=== PATIENT | male | born 1970 | race Caucasian/White ===

== ENCOUNTER 2021-03-19 07:41 | Emergency (ER) | payer OTHER, SELFPAY ==
[2021-03-19 07:41] VITALS: BP 140/69; PULSE 71; RESP 16; TEMP 35.9; O2SAT 97; BMI 27.9
--- NOTE | 2021-03-19 08:07 | ED.VIS.BACK ---
HPI History of Present Illness Chief Complaint: Back Narrative Narrative: Patient has had progressive pain over the past few weeks but got worse in the past few days, he is complaining of left-sided paraspinal pain buttock pain with radiation into the leg. He has no fever or chills. This all started after he stepped into a hole and twisted his back. He has no bowel or bladder compromise, no urinary retention symptoms no saddle anesthesia. He has no abdominal pain. PFSH PFSH Home Medications methylprednisolone [Medrol (Jh)] 4 mg PO DAILY #21 tab 03/19/21 [Rx Last Taken Unknown] oxycodone-acetaminophen [Percocet] 1 tab PO TID PRN 3 Days #10 tab 03/19/21 [Rx Last Taken Unknown] tizanidine 4 mg PO QHS PRN #14 tab 03/19/21 [Rx Last Taken Unknown] Allergy/AdvReac Type Severity Reaction Status Date / Time No Known Allergies Allergy Verified 10/14/19 16:07 Social History (Updated 10/14/19 @ 17:21 by Kaleb VANEGAS, GUILHERME) Smoking Status: Never smoker ROS ROS ED ROS Narrative Past medical history: Reviewed Medications: Reviewed Social history: Noncontributory Review of systems: All systems negative except as indicated General: No fever Eyes: No visual changes ENT: No upper airway congestion, normal voice Neck: No neck pain Cardiovascular: No chest pain Respiratory: No shortness of breath or cough Gastrointestinal: No abdominal pain, nausea vomiting or diarrhea Genitourinary: No dysuria Musculoskeletal: Buttock and back pain as in HPI Skin: No rash Neurological: No weakness or paresthesias, radiculopathy as in HPI Psych: No recent behavioral changes Hematologic: No easy bleeding or easy bruising EXAM Physical Exam Narrative Exam Narrative: Vitals reviewed General: Patient appears in some discomfort HEENT: Moist mucous membranes Neck: Nontender Cardiovascular normal heart rate Respiratory: No respiratory difficulty speaking in full sentences Abdomen: Soft and nontender, there is no suprapubic mass or pain Back: There is some tenderness over paraspinal region on the left, some tenderness in the upper buttock region. Pelvis is stable no SI joint pain. Extremities: Moves all extremities without joint pain or signs of trauma Neurological: There is normal plantar flexion and dorsiflexion of both feet and great toes. Patellar and Achilles reflexes are normal. Normal strength and sensation. Positive left-sided straight leg test. Skin: No rash Psychiatric: Slightly anxious. Const Vital Signs: 03/19/21 07:41 Temperature 96.6 F L Temperature Source Temporal Pulse Rate 71 Respiratory Rate 16 Blood Pressure 140/69 H Blood Pressure Mean 92 Pulse Ox 97 Oxygen Delivery Method Room Air MDM MDM MDM Narrative Medical decision making narrative: Patient has sciatica without any red flags I will treat him medically and he can follow-up with his PCP. Discharge Plan Triage Chief Complaint: Back ED Provider: Colt Zee Dx/Rx/DC Orders Clinical Impression: Sciatica Instructions: ED Sciatica Prescriptions: New methylprednisolone [Medrol (Jh)] 4 mg tablets,dose pack 4 mg PO DAILY Qty: 21 RF: 0 oxycodone-acetaminophen [Percocet] 5-325 mg tablet 1 tab PO TID PRN (Reason: pain) 3 Days Qty: 10 RF: 0 tizanidine 4 mg tablet 4 mg PO QHS PRN (Reason: muscle spasticity) Qty: 14 RF: 0 Primary Care Provider: Arely Villalobos Referrals: Arely Villalobos MD [Primary Care Provider] - 3-5 Days Disposition Disposition: Home, Self Care
[2021-03-19] MEDS: oxyCODONE 5 MG Tablet PO (08:40)
== END 2021-03-19 08:44 | disposition home or self-care (01) ==
LOC: ED 08:20
PROVIDERS: Emergency Provider Emergency Medicine; PCP Family Medicine
DX: M54.30 Sciatica, unspecified side (principal)
CPT/HCPCS: 99283

== ENCOUNTER 2021-05-16 11:00 | Outpatient (RCR) | payer OTHER, SELFPAY ==
--- NOTE | 2021-03-28 11:39 | HP.PTEVAL_ITS ---
Patient's Visit Information DHEERAJ SENIOR is a 50 year old M referred to Physical Therapy by Dr. Arely Villalobos MD with a diagnosis of R sciatica. Date of Evaluation: 03/28/21 Physical Therapist: Isai Casanova, PT, ATC - Visit Plan Frequency: 2-3x /Week Duration: 2-4 Weeks Plan: Postural education, REIL, core stab ex's, LE stretching, and HEP - Subjective Pt reports he has had LBP for a month. Then a couple weeks ago, he began to expe rience pain that radiated down to his R ankle. Pt reports his R LE radiculopathy has decreased a little, but he still complains of pain located in the R glute region. Pt reports he has been seeing a chiropractor over the past few weeks which has helped, but notes it is not better yet. Pt denies pain of this nature in the past. Pt reports sleep difficulty secondary to pain. Pt reports he has been taking a steroid pack which really hasnt helped. Pt notes no Dx tests at this time. 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 Pt reports bending over to pick an item up and carrying it will increase his pain. Pt notes prolonged sitting also increases his pain. Pt notes walking doesnt bother him until he walks a long distance, then his hamstrings and peterson splints act up. 6/10 pain at rest, 9/10 at worst. - Pain R LBP Pain Intensity (Out of 10): 6 Pain Intensity Range: 9 - Objective Neuro: B LE sensation is WNL to light touch. B patellar reflex= 1/3. MMT: B LE's are grossly 5/5 throughout. L?S ROM: Pt has a minimal limitation with ext. all other ranges are WNL. Repeated movements: RFIS 10x1 peripheralized sx's into R glute and upper HS. CHERELLE 10x2 increased LBP. REIL 10x2 NE. Special tests: Pos 90/90, pos piriformis sign - Balance/Special Test Scores Lower Extremity Functional Score: 47 - Goals Goal 1:: Decrease LBP x 50% to aid with sleep Goal Time Frame: 2-4 Weeks Goal 2:: Increase L/S ext ROM to WNL to aid with decreasing LBP Goal Time Frame: 2-4 Weeks Goal 3:: Decrease the frequency and intensity of LBP x 50% to aid with work requirements Goal Time Frame: 2-4 Weeks Goal 4:: I with HEP Goal Time Frame: 2-4 Weeks - Rehabilitation Potential Physical Therapy Diagnosis: Pt has LBP, R LE radiculopathy, and limited L/S ext ROM secondary to a L/S disc derrangement. Rehabilitation Potential: Good - Anticipated Interventions Patient/Client Instruction: Educate patient on: Condition, Plan of Care For the Purpose of:: To improve self management Therapeutic Exercise to Include: Strength training, Endurance training, Body mechanics, Postural training, Flexibilty training, Active ROM, Dynamic Lumbar Stabilization For the Purpose of:: To decrease pain, To increase ROM, To improve muscle performance and motor function Cryotherapy (ice pack, ice massage): Yes Thermo therapy (hot pack): Yes For the Purpose of:: To decrease pain Thank you for the opportunity to evaluate your patient. For Medicare and Medicare HMO plans, please review the plan of care and approve it. It will need to be FAXED BACK to us at [phone] for Medicare purposes. For Medicare only, by signing this I certify the plan of care. Please let me know if there are questions or concerns regarding this plan of care. Physician Signature: Date:
--- NOTE | 2021-04-18 11:33 | HP.PTREVAL_ITS ---
Dr. Arely Villalobos MD, It has been my pleasure to treat DHEERAJ SENIOR over the last 5 visits for R sciatica. Please see the progress note below for an update on the physical therapy plan of care! Subjective: I am ready for discharge Objective/Function: No LBP this date. No LE radiculopathy at this time. Pt has full L/S ROM. Pt is I with HEP Plan Plan: Recheck or discharge in one month Balance/Gait/Functional tests - Balance/Special Test Scores Lower Extremity Functional Score: 73 Goals Goal 1:: Decrease LBP x 50% to aid with sleep Goal Time Frame: 2-4 Weeks Goal Progress: Goal Met Goal 2:: Increase L/S ext ROM to WNL to aid with decreasing LBP Goal Time Frame: 2-4 Weeks Goal Progress: Goal Met Goal 3:: Decrease the frequency and intensity of LBP x 50% to aid with work requirements Goal Time Frame: 2-4 Weeks Goal Progress: Goal Met Goal 4:: I with HEP Goal Time Frame: 2-4 Weeks Goal Progress: Goal Met Anticipated Interventions Patient/Client Instruction: Educate patient on: Condition, Plan of Care For the Purpose of:: To improve self management Therapeutic Exercise to Include: Strength training, Endurance training, Body mechanics, Postural training, Flexibilty training, Active ROM, Dynamic Lumbar S tabilization For the Purpose of:: To decrease pain, To increase ROM, To improve muscle performance and motor function Cryotherapy (ice pack, ice massage): Yes Thermo therapy (hot pack): Yes For the Purpose of:: To decrease pain Please do not hesitate to contact me at [phone] by phone or Fax: if you have questions or concerns regarding this new plan of care! Sincerely, Isai Casanova, PT, ATC
--- NOTE | 2021-05-16 12:01 | HP.PTDCSUM ---
It has been my pleasure to treat DHEERAJ SENIOR referred by Dr. Arely Villalobos MD, with the diagnosis of R sciatica for a total of 6 visit(s). Discharge Date: Please see the following information for a summary of their discharge status. Subjective: Pt reports he continues to notice improvements R LBP Pain Intensity (Out of 10): 2 % Improvement: 80 Objective/Function: 2/10 LBP this date. No LE radiculopathy at this time. Pt has full L/S ROM. Pt is I with HEP. Rx goals achieved Goal 1:: Decrease LBP x 50% to aid with sleep Goal Progress: Goal Met Goal 2:: Increase L/S ext ROM to WNL to aid with decreasing LBP Goal Progress: Goal Met Goal 3:: Decrease the frequency and intensity of LBP x 50% to aid with work requirements Goal Progress: Goal Met Goal 4:: I with HEP Goal Progress: Goal Met Plan: Discharge to HEP If there are questions or concerns regarding this patient's physical therapy, please feel free to call me at [phone]. Thank you for the referral of this patient. Sincerely, Isai Casanova, PT, ATC Balance/Gait/Functional tests - Balance/Special Test Scores Oswestry Low Back Score: 0 Lower Extremity Functional Score: 73
== END 2021-05-16 12:23 | disposition home or self-care (01) ==
LOC: PT 11:00
PROVIDERS: PCP Family Medicine; Referring Provider Family Medicine; Visit Provider Family Medicine
DX: M54.31 Sciatica, right side (principal)
CPT/HCPCS: 97110; 97161; 97164

== ENCOUNTER 2022-03-04 08:21 | Emergency (ER) | payer OTHER, SELFPAY ==
[2022-03-04 08:23] VITALS: BP 125/95; PULSE 75; RESP 14; TEMP 36.7; O2SAT 97; BMI 28.8
[2022-03-04 08:32] VITALS: BP 121/78; PULSE 53; RESP 16; TEMP 36; O2SAT 98
[2022-03-04 08:39] VITALS: BMI 28.5
--- NOTE | 2022-03-04 08:49 | CT_ITS ---
STUDY: CT BRAIN WITHOUT CONTRAST REASON FOR EXAM: Male, 51 years old. One day history of dizziness. RADIATION DOSAGE (If Supplied By Facility): CTDIvol = ( 44.99 ) mGy, DLP = ( 812.98 ) mGycm TECHNIQUE: Transaxial CT imaging of the brain was performed without administration of intravenous contrast material. Individualized dose optimization techniques were used for this CT. COMPARISON: No relevant priors. FINDINGS: Normal soft tissue structures. Normal calvarium. Normal size ventricles and extra-axial spaces for the patient''s age. Normal white matter tracts of the cerebral hemispheres. Normal basal ganglia and thalami. Normal brainstem. Normal cerebellum. There is no intracranial hemorrhage. There are no findings of an acute ischemic infarction. Minimal degree of mucosal thickening of the ethmoid sinuses. CT/Brain/Head without Contrast IMPRESSION: Normal unenhanced CT scan of the brain. Minimal thickening of the ethmoid sinuses bilaterally. Electronically Signed: Abhi Vásquez MD at 9:30 EDT ,
--- NOTE | 2022-03-04 08:53 | EX.ED.DYSGE1 ---
HPI History of Present Illness Chief Complaint: Dizziness Informant: patient and spouse/S.O. Narrative Narrative: 51-year-old male presents to the emergency department with reported dizziness. Patient states that yesterday morning while drinking coffee he felt that perhaps his coffee was too strong as he started noticed that he felt dizzy. He states as the day progressed he had sensation of the room spinning when his eyes are open. He notes it is also worse if he attempts to get up or turn his head. He denies any headache or tinnitus. No recent URI or sinus issues. No fevers. No arm or leg symptoms. He denies any vision loss. No recent head trauma. His tried some meclizine and Dramamine last night with no improvement. He has never had this before. He denies any confusion. [facility] Medical History Back pain Indigestion Home Medications omeprazole 40 mg capsule,delayed release 40 mg PO DAILY PRN Heartburn 03/04/22 [History Last Taken Unknown] Allergy/AdvReac Type Severity Reaction Status Date / Time No Known Allergies Allergy Verified 03/04/22 08:40 Social History (Updated 03/04/22 @ 08:[address] Luis Fernando Martínez DO) Smoking Status: Never smoker substance use type: does not use ROS ROS ED Constitutional Constitutional ED: Denies chills, fever(s) or weight loss Eyes Eyes: Denies change in vision or diplopia ENT ENT ED: Reports other; Denies ear pain, rhinorrhea or sore throat Cardiovascular Cardiovascular: Denies chest pain, orthopnea, palpitations or racing heartbeat Respiratory/Chest Respiratory/Chest: Denies cough, dyspnea or orthopnea Gastrointestinal Gastrointestinal: Denies abdominal pain, diarrhea, nausea or vomiting Genitourinary Genitourinary ED: Denies dysuria, hematuria or urinary frequency Musculoskeletal Musculoskeletal: Denies arthralgias or myalgias Integumentary Denies abscess or rash Neurologic Neurologic: Reports other Details: Dizziness ; Denies headache(s), paresthesias or weakness Psychiatric Psychiatric: Denies anxiety, depression, suicidal ideation or suicidal thoughts Endocrine Endocrinology: Denies polydipsia, polyphagia or polyuria Allergic/Immunologic Allergic/Immunologic ED: Denies mouth swelling, tongue swelling or urticaria EXAM Physical Exam Const Vital Signs: 03/04/22 08:23 03/04/22 08:32 03/04/22 08:35 Temperature 98.1 F 96.8 F L Temperature Source Temporal Temporal Pulse Rate 75 53 L Respiratory Rate 14 16 Respiratory Effort Normal Non-Labored Respiratory Pattern Normal Blood Pressure 125/95 H 121/78 H Blood Pressure Mean 105 92 Pulse Ox 97 98 Oxygen Delivery Method Room Air Room Air 03/04/22 10:29 Temperature Temperature Source Pulse Rate 50 L Respiratory Rate 12 Respiratory Effort Respiratory Pattern Blood Pressure 122/86 H Blood Pressure Mean 98 Pulse Ox 99 Oxygen Delivery Method Room Air Positive well nourished and well developed General Appearance ED: well developed HEENT Reports normocephalic, head/scalp atraumatic and moist mucous membranes HEENT Narrative: Positive Pascale-Hallpike Eyes PERRL and EOMs intact bilaterally Eyes Narrative: There is nystagmus with the fast component to the right with movement of his head and ocular movements. Neck no lymphadenopathy, supple and no JVD Resp normal respiratory effort and clear to auscultation bilaterally Cardio regular rate, regular rhythm and no murmurs GI normal to inspection, nondistended, normoactive bowel sounds and non-tender Palpation: soft Back/Spine no CVA tenderness and normal ROM Extremity normal to inspection General Extremety ED: Negative for edema General Extremity: Negative for edema Neuro oriented x3 and CN's II-XII intact bilaterally Sensorium / Orientation: alert Motor Exam: strength 5/5 throughout Psych mental status grossly normal Mood & Affect: Negative for depressed or tearful Skin no rashes or lesions noted and no wounds MDM MDM MDM Narrative Medical decision making narrative: Patient received IV fluids Zofran and p.o. Valium. CT of the brain was negative. Repeat examination the patient feels better at rest however when he got up to walk to the bathroom he states that things still seem spinning. We talked about admission into the hospital and the patient would like to try treating this at home. I think this is reasonable as I believe this is most likely peripheral vertigo. I will write for some diazepam and Zofran at home. We talked about following up the possible need for ENT or physical therapy involvement. Lab Data Attestation: I reviewed the patient's lab results. Labs: Laboratory Results - last 24 hr 03/04/22 03/04/22 09:05 09:05 WBC 6.0 RBC 5.33 Hgb 16.6 H Hct 46.6 MCV 87.4 MCH 31.1 MCHC 35.6 RDW Std Deviation 39.1 RDW Coeff of Melany 12.2 Plt Count 203 MPV 8.7 Immature Gran % (Auto) 0.200 Neut % (Auto) 66.6 Lymph % (Auto) 25.5 [place]illa % (Auto) 6.5 Eos % (Auto) 0.5 Baso % (Auto) 0.7 Absolute Neuts (auto) 4.0 Absolute Lymphs (auto) 1.54 Nucleated RBC % 0 Sodium 138 Potassium 4.0 Chloride 102 Carbon Dioxide 32.0 Anion Gap 4 L BUN 14 Creatinine 0.89 Estim Creat Clear Calc 100.25 Est GFR (MDRD) Af Amer 115 Est GFR (MDRD) Non-Af 95 BUN/Creatinine Ratio 15.7 Glucose 106 Calcium 9.4 Total Bilirubin 0.40 AST 19 ALT 41 Alkaline Phosphatase 73 Total Protein 7.3 Albumin 3.7 Globulin 3.6 Albumin/Globulin Ratio 1.0 Radiography Diagnostic Testing: Clinical Impression(s) from Imaging Studies Brain CT 03/04/22 08:49 IMPRESSION: Normal unenhanced CT scan of the brain. Minimal thickening of the ethmoid sinuses bilaterally. Electronically Signed: Abhi Vásquze MD at 9:30 EDT , Discharge Plan Triage Chief Complaint: Dizziness ED Provider: Luis Fernando Martínez Dx/Rx/DC Orders Prescriptions: No Action omeprazole 40 mg Capsule,Delayed Release(Dr/Ec) 40 mg PO DAILY PRN (Reason: Heartburn) Primary Care Provider: Arely Villalobos Referrals: Arely Villalobos MD [Primary Care Provider] - NIHSS NIHSS 1a. Level of Consciousness: Alert; keenly responsive 1b. LOC Questions: Answers BOTH questions correctly. 1c. LOC Commands: Performs both tasks correctly. 2. Best Gaze: Normal 3. Visual: No visual loss 4. Facial Palsy: Normal symmetrical movements 5a. Left Arm: No drift; arm holds 90 (or 45) degrees for full 10 seconds 5b. Right Arm: No drift; arm holds 90 (or 45) degrees for full 10 seconds 6a. Left Leg: No drift; leg holds 30-degree position for full 5 seconds 6b. Right Leg: No drift; leg holds 30-degree position for full 5 seconds 7. Limb Ataxia: Absent 8. Sensory: Normal; no sensory loss 9. Best Language: No aphasia; normal 10. Dysarthria: Normal 11. Extinction and Inattention: No abnormality Total: 0
[2022-03-04] MEDS: 0.9% Normal Saline 1,000 ML 1000 ML IV (09:06)
[2022-03-04] MEDS: Ondansetron 4 MG/2 ML Vial IV (09:07)
[2022-03-04 09:13] LABS: Absolute Lymphocyte Count 1.54 X10^3/uL (0.83-4.51); Basophil# 0.04 X10^3/uL; Basophil% 0.7 % (0-1); Eosinophil# 0.03 X10^3/uL; Eosinophils% 0.5 % (0-5); Hematocrit 46.6 % (40-54); Hemoglobin 16.6 g/dL (13.0-16.5); Lymphocyte # 1.54 X10^3/ul (0.83-4.51); Lymphocyte % 25.5 % (19-41); Mean Corp Hgb Conc 35.6 g/dL (32-36); Mean Corpuscular Hgb 31.1 pg (27.0-32.0); Mean Corpuscular Volume 87.4 fL (80-94); Mean Platelet Vol. 8.7 fl (6.2-12.0); Monocyte# 0.39 X10^3/uL; Monocyte% 6.5 % (0-10); NRBC Flagged by Analyzer 0 % (0-5); Neutrophil # 4.02 X10^3/uL (2.7-7.7); Neutrophil % 66.6 % (47-70); Platelet Count 203 K/mm3 (150-450); RBC Distribution Width CV 12.2 % (11.6-14.6); RBC Distribution Width SD 39.1 fl (35.1-43.9); Red Blood Count 5.33 M/mm3 (4.6-6.2)
[2022-03-04] MEDS: diazePAM 5 MG Tablet PO (09:13)
[2022-03-04 09:31] LABS: AST(SGOT) 19 U/L (15-37); Alanine Aminotransfer ALT/SGPT 41 U/L (16-61); Albumin, Serum 3.7 g/dL (3.2-5.0); Alkaline Phosphatase 73 U/L (45-117); Anion Gap 4 (5-15); BUN 14 mg/dL (7-18); BUN/Creat Ratio 15.7 RATIO (10-20); Calcium,Total 9.4 mg/dL (8.5-10.1); Chloride 102 mmol/L (98-107); Creatinine, Serum 0.89 mg/dL (0.70-1.30); EST Glomerular Filtration Rate 95 mL/min (>60); Est Glom Filt Rate - Afr Amer 115 mL/min (>60); Estimated Creatinine Clearance 100.25 ml/min; Globulin 3.6 g/dL (2.2-4.2); Glucose 106 mg/dL (74-106); Protein, Total 7.3 g/dL (6.4-8.2); Sodium Level 138 mmol/L (136-145)
[2022-03-04 10:29] VITALS: BP 122/86; PULSE 50; RESP 12; O2SAT 99
[2022-03-04 12:41] VITALS: BP 107/81; PULSE 56; RESP 12; TEMP 36.1; O2SAT 99
[2022-03-04 12:46] VITALS: BP 107/81; PULSE 56; RESP 12; TEMP 36.1; O2SAT 99
== END 2022-03-04 12:51 | disposition home or self-care (01) ==
PROVIDERS: Emergency Provider Emergency Medicine; PCP Family Medicine; Visit Provider Emergency Medicine
DX: R42 Dizziness and giddiness (principal); Z79.899 Other long term (current) drug therapy
CPT/HCPCS: 70450; 80053; 85025; 96361; 96374; 99285; J7030; J2405

== ENCOUNTER 2022-03-10 06:51 | Outpatient (RCR) | payer OTHER, SELFPAY ==
--- NOTE | 2022-03-10 07:41 | HP.PTEVAL_ITS ---
Patient's Visit Information DHEERAJ SENIOR is a 51 year old M referred to Physical Therapy by Dr. Arely Villalobos MD with a diagnosis of vertigo. Date of Evaluation: 03/10/22 Physical Therapist: Zia Luciano DPT, OCS, CSCS - Visit Plan Frequency: 1x/Week Duration: 2-4 Weeks Plan: weekly as needed for 3-4 weeks for adaptation and habituation ex progression as helpful - Subjective I have vertigo since last Thursday. [place] fine upon waking. Started getting dizzy with morning coffee. Ate some food and left for work it just got worse. Went home and laid down and it got worse where he could not walk. Thursday woke up and felt worse and went to ER. Spent day in ER. Had Catscan and checked him out for stroke and it was OK. Gave him antinausea meds and dizzy meds in ER. Went to PCP and sent for therapy. Not on meds anymore. Feels foggy last couple days and gets dizzy if turns his head quickly and transiently. A little spinny if turns head too quick. had breast CA surgery Thursday . [place] cloudy much of the weekend but functional and can walk. No actual spinning since . 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 Basic ADLs and doing things around the house. No falls, overall 90% better, still has some lagging with movements and feelings. - Objective Walks easily and I today, trasnfers I. Steps reciprocal without rail. cervical AROM WFL and without pain or limitations. UE AROM WFL. - B hallpike carolyn tests and - roll test. Oculomotor: no nystagmus with gaze or head shake. - skew eye deviation. - ocular tilt test. - head thrust. normal pursuit and saccades today but eyes feel tired. VOR gives goofy feeling in head for a few moments H>V. MSQ positions, 180 turns and up form knee both cause momentary feeling in head. 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 For Medicare and Medicare HMO plans, please review the plan of care and approve it. It will need to be FAXED BACK to us at [phone] for Medicare purposes. For Medicare only, by signing this I certify the plan of care. Please let me know if there are questions or concerns regarding this plan of care. Physician Signature: Date:
--- NOTE | 2022-04-21 12:30 | HP.PT.NRP ---
DHEERAJ SENIOR was seen in my office for initial evaluation on 03/10/22. The following Plan of Care was established for this patient: Initial Frequency: 1x/Week Initial Duration: 2-4 Weeks Patient/Client Instruction: Educate patient on: Condition, Plan of Care For the Purpose of:: To increase tolerance to activity/condition/position For the Purpose of:: To increase tolerance to activity/condition/position This patient was last seen in our office 03/10/22. Pertinent comments regarding their Physical therapy will appear below: Pt seen for initial evaluation and POC established. He was doing pretty good with his dizzyness at the time. He did not attend any further visits. At this point, it has been over 4 weeks and I will discontinue him from my care due to nonattendance. At this point I will be discontinuing this patient from physical therapy. I would be happy to see this patient again in the future if found appropriate by the physician. Thank you! Zia Luciano, DPT, OCS, CSCS Balance/Gait/Functional tests - Balance/Special Test Scores Functional Gait Assessment Score: 30 % Disability: 0 Dizziness Score: 16
== END 2022-03-10 19:00 | disposition home or self-care (01) ==
LOC: PT 06:51
PROVIDERS: PCP Family Medicine; Referring Provider Family Medicine; Visit Provider Family Medicine
DX: R42 Dizziness and giddiness (principal)
CPT/HCPCS: 97161

== ENCOUNTER 2024-02-04 08:05 | Emergency (ER) | payer OTHER, SELFPAY ==
[2024-02-04 08:05] VITALS: BP 150/96; PULSE 77; RESP 14; TEMP 36.6; O2SAT 95; BMI 29.8
--- NOTE | 2024-02-04 08:16 | CT_ITS ---
STUDY: CT BRAIN WITHOUT CONTRAST REASON FOR EXAM: Male, 53 years old. Laceration along the posterior aspect of the skull following a fall. RADIATION DOSAGE (If Supplied By Facility): CTDIvol = ( 44.99 ) mGy, DLP = ( 796.11 ) mGycm TECHNIQUE: Transaxial CT imaging of the brain was performed without administration of intravenous contrast material. Individualized dose optimization techniques were used for this CT. COMPARISON: Comparison is made with prior study dated March 04, 2022. FINDINGS: Minimal scalloped thickening along the posterior aspect of the right parieto-occipital bone. A metallic density is seen overlying the skull at that site most likely representing a suture. Normal calvarium. Normal size ventricles and extra-axial spaces for the patient''s age. Normal white matter tracts of the cerebral hemispheres. Normal basal ganglia and thalami. Normal brainstem. Normal cerebellum. There is no intracranial hemorrhage. There are no findings of an acute ischemic infarction. Normal visualized paranasal sinuses. CT/Brain/Head without Contrast IMPRESSION: Normal unenhanced CT scan of the brain. Minimal scalloped thickening overlying the posterior right parietal occipital bone. Findings suggestive of suture material overlying the injury. Electronically Signed: Abhi Vásquez MD at 8:58 EDT ,
--- NOTE | 2024-02-04 08:16 | EDS_ITS ---
HPI History of Present Illness Chief Complaint: Head Injury Informant: patient and spouse/S.O. Narrative Narrative: 53-year-old male presenting to the emergency room with a chief complaint of head injury. Patient was in the bed of his truck when he tripped and fell over the wire on the gait striking his head on the pavement below. No loss of consciousness but he notes that he was dizzy. PFSH PFSH Medical History Back pain Indigestion Home Medications ?Medication ?Instructions ?Recorded ?Last Taken ?Type omeprazole 40 mg capsule,delayed 40 mg PO DAILY PRN Heartburn 03/04/22 Unknown History release benzonatate 200 mg capsule 200 mg PO TID PRN cough #14 caps 06/29/23 Unknown Rx dexamethasone 6 mg tablet 6 mg PO DAILY #5 tabs 06/29/23 Unknown Rx Allergy/AdvReac Type Severity Reaction Status Date / Time No Known Allergies Allergy Verified 02/04/24 08:05 Social History Smoking Status: Never smoker substance use type: does not use EXAM Physical Exam Const Vital Signs: 02/04/24 08:05 Temperature 98 F Temperature Source Temporal Pulse Rate 77 Respiratory Rate 14 Blood Pressure 150/96 H Blood Pressure Mean 114 Pulse Ox 95 Oxygen Delivery Method Room Air Discharge Plan Triage Chief Complaint: Head Injury ED Provider: Luis Fernando Martínez Dx/Rx/DC Orders Prescriptions: No Action dexamethasone 6 mg tablet 6 mg PO DAILY Qty: 5 0RF benzonatate 200 mg capsule 200 mg PO TID PRN (Reason: cough) Qty: 14 0RF omeprazole 40 mg Capsule,Delayed Release(Dr/Ec) 40 mg PO DAILY PRN (Reason: Heartburn) Primary Care Provider: Arely Villalobos Referrals: Arely Villalobos MD [Primary Care Provider] - Print Language: Mozambican
--- NOTE | 2024-02-04 08:16 | EX.ED.DYSGE1 ---
HPI History of Present Illness Chief Complaint: Head Injury Informant: patient and spouse/S.O. Narrative Narrative: 53-year-old male presenting to the emergency room with a chief complaint of head injury. Patient was in the bed of his truck when he tripped and fell over the wire on the gait striking his head on the pavement below. No loss of consciousness but he notes that he was dizzy. No vomiting but does note nausea and headache. He notes that he also contused an abrasion to his left elbow and has some discomfort in his tailbone area. He believes his tetanus shot is up-to-date. He notes injury to the back of his head. [facility] Medical History Indigestion Back pain Home Medications ?Medication ?Instructions ?Recorded ?Last Taken ?Type omeprazole 40 mg capsule,delayed 40 mg PO DAILY PRN Heartburn 03/04/22 Unknown History release benzonatate 200 mg capsule 200 mg PO TID PRN cough #14 caps 06/29/23 Unknown Rx dexamethasone 6 mg tablet 6 mg PO DAILY #5 tabs 06/29/23 Unknown Rx ondansetron 4 mg disintegrating 4 mg PO Q6H PRN PRN Nausea #15 tabs 02/04/24 Unknown Rx tablet Allergy/AdvReac Type Severity Reaction Status Date / Time No Known Allergies Allergy Verified 02/04/24 08:05 Social History Smoking Status: Never smoker substance use type: does not use ROS ROS ED Constitutional Constitutional ED: Denies chills, fever(s) or weight loss Eyes Eyes: Denies change in vision or diplopia ENT ENT ED: Denies ear pain, rhinorrhea or sore throat Cardiovascular Cardiovascular: Denies chest pain, orthopnea, palpitations or racing heartbeat Respiratory/Chest Respiratory/Chest: Denies cough, dyspnea or orthopnea Gastrointestinal Gastrointestinal: Denies abdominal pain, diarrhea, nausea or vomiting Genitourinary Genitourinary ED: Denies dysuria, hematuria or urinary frequency Musculoskeletal Musculoskeletal: Reports other Details: See history of present illness ; Denies arthralgias, back pain, myalgias or neck pain Integumentary Reports Abrasions; Denies abscess or rash Neurologic Neurologic: Denies headache(s) or weakness Psychiatric Psychiatric: Denies anxiety, depression, suicidal ideation or suicidal thoughts Endocrine Endocrinology: Denies polydipsia, polyphagia or polyuria Allergic/Immunologic Allergic/Immunologic ED: Denies mouth swelling, tongue swelling or urticaria EXAM Physical Exam Const Vital Signs: 02/04/24 08:05 Temperature 98 F Temperature Source Temporal Pulse Rate 77 Respiratory Rate 14 Blood Pressure 150/96 H Blood Pressure Mean 114 Pulse Ox 95 Oxygen Delivery Method Room Air Positive well nourished and well developed General Appearance ED: well developed HEENT Reports normocephalic and moist mucous membranes HEENT Narrative: There is an area of road rash in the occiput of the scalp. This area is about 3.5 cm in diameter. In the inferior aspect there is a irregular line of skin that the wound edges are well-approximated and it does not separate with skin tension. There is some mild soft tissue edema. No palpable bony depressions. There does appear to be some superficial foreign bodies on the skin. Eyes PERRL and EOMs intact bilaterally Neck no lymphadenopathy, supple and no JVD General: Negative for tenderness Resp normal respiratory effort and clear to auscultation bilaterally Cardio regular rate, regular rhythm and no murmurs GI normal to inspection, nondistended, normoactive bowel sounds and non-tender Palpation: soft Back/Spine no CVA tenderness and normal ROM Extremity Extremity Narrative: Posterior left elbow shows a mild contusion and minimal abrasion. Full range of motion. No radial head tenderness. Tender to palpation of the buttock on the left towards the midline. No significant swelling or contusion noted. General Extremety ED: Negative for edema General Extremity: Negative for edema Neuro oriented x3 and CN's II-XII intact bilaterally Sensorium / Orientation: alert Motor Exam: strength 5/5 throughout Psych mental status grossly normal Mood & Affect: Negative for depressed or tearful Skin no rashes or lesions noted MDM MDM MDM Narrative Medical decision making narrative: Differential diagnosis includes but not limited to fracture intracranial hemorrhage/hematoma concussion laceration foreign bodies in the skin buttock contusion sacral fracture elbow fracture elbow contusion Based on the physical exam think most likely has a buttock contusion. Pain is more lateral than in the midline. Elbow has full range of motion and appears to be more contused. Therefore formal imaging was not obtained at this areas. CT of the brain demonstrates no skull fracture or intracranial hemorrhage. Using forceps I was able to removed about 5 small pieces of foreign bodies from the scalp. Local wound care discussed with patient. We discussed whether or not I should put stitches into the wound but as the wound edges are well-approximated I think that as the swelling goes down and the blood coagulate this should heal the same cosmetically as stitches would. Patient is comfortable with that plan. Patient received Tylenol and Zofran. Would recommend the same at home. We talked about home concussion treatment follow-up 1 week if not improving History & Record Review Discussion w/independent historian: Patient and Significant other Radiography Diagnostic Testing: Clinical Impression(s) from Imaging Studies Brain CT 02/04/24 08:16 IMPRESSION: Normal unenhanced CT scan of the brain. Minimal scalloped thickening overlying the posterior right parietal occipital bone. Findings suggestive of suture material overlying the injury. Electronically Signed: Abhi Vásquez MD at 8:58 EDT , Discharge Plan Triage Chief Complaint: Head Injury ED Provider: Luis Fernando Martínez Dx/Rx/DC Orders Clinical Impression: Concussion, Fall, Abrasion of scalp, Foreign body of skin of scalp, Contusion of buttock Instructions: Concussion Dc, ED Abrasion Prescriptions: New ondansetron 4 mg tablet,disintegrating 4 mg PO Q6H PRN PRN (Reason: Nausea) Qty: 15 0RF No Action dexamethasone 6 mg tablet 6 mg PO DAILY Qty: 5 0RF benzonatate 200 mg capsule 200 mg PO TID PRN (Reason: cough) Qty: 14 0RF omeprazole 40 mg Capsule,Delayed Release(Dr/Ec) 40 mg PO DAILY PRN (Reason: Heartburn) Primary Care Provider: Arely Villalobos Referrals: Arely Villalobos MD [Primary Care Provider] - 1 Week Print Language: Kinyarwanda Disposition Disposition: Home, Self Care
[2024-02-04] MEDS: Acetaminophen 500 MG Tablet 1000 MG PO (08:23)
[2024-02-04] MEDS: Ondansetron ODT 4 MG Tablet PO (08:23)
[2024-02-04 09:26] VITALS: BP 118/64; PULSE 56; RESP 18; TEMP 36.7; O2SAT 100
== END 2024-02-04 09:45 | disposition home or self-care (01) ==
PROVIDERS: Emergency Provider Emergency Medicine; PCP Family Medicine; Visit Provider Emergency Medicine
DX: S06.0X0A Concussion without loss of consciousness, initial encounter (principal); S00.05XA Superficial foreign body of scalp, initial encounter; S50.02XA Contusion of left elbow, initial encounter; S30.0XXA Contusion of lower back and pelvis, initial encounter; W18.09XA Striking against other object with subsequent fall, initial encounter; Y92.812 Truck as the place of occurrence of the external cause; Z79.899 Other long term (current) drug therapy
CPT/HCPCS: 70450; 99283

== ENCOUNTER 2024-02-06 09:00 | Emergency (ER) | payer OTHER, SELFPAY ==
[2024-02-06 09:00] VITALS: BP 129/88; PULSE 71; RESP 14; TEMP 36.6; O2SAT 98; BMI 29.0
--- NOTE | 2024-02-06 09:53 | CT_ITS ---
STUDY: CT BRAIN WITHOUT CONTRAST REASON FOR EXAM: Male, 53 years old. Pain. RADIATION DOSAGE (If Supplied By Facility): CTDIvol = ( 45 ) mGy, DLP = ( 779 ) mGycm TECHNIQUE: Transaxial CT imaging of the brain was performed without administration of intravenous contrast material. Individualized dose optimization techniques were used for this CT. COMPARISON: Prior study dated: 02/04/2024 FINDINGS: PARENCHYMA: There is no acute bleed or infarct. There are normal white matter tracts. VENTRICLES: There is no hydrocephalus. MASTOID AIR CELLS AND PARANASAL SINUSES: The visualized paranasal sinuses are clear. The mastoid air cells are clear. BONES: There is no skull fracture. SOFT TISSUES: There is mild scalp soft tissue swelling in the parieto-occipital region. CT/Brain/Head without Contrast IMPRESSION: No acute intracranial abnormality. Mild scalp soft tissue swelling in the parieto-occipital region. Electronically Signed: Rubio Linares MD at 10:56 EDT ,
--- NOTE | 2024-02-06 09:53 | CT_ITS ---
STUDY: CT CERVICAL SPINE WITHOUT CONTRAST REASON FOR EXAM: Male, 53 years old. Trauma RADIATION DOSAGE (If Supplied By Facility): CTDIvol = ( 20 to ) mGy, DLP = ( 445 ) mGycm TECHNIQUE: High resolution transaxial imaging was performed without contrast material. Sagittal and coronal images were reconstructed. Individualized dose optimization techniques were used for this CT. COMPARISON: No relevant prior comparison study available FINDINGS: BONES: There is no fracture in the cervical spine. The dens is intact. The vertebral body heights are maintained. ALIGNMENT: There is no dislocation. There is straightening of the normal cervical lordosis which may be due to paraspinal muscle spasm or may be positional in nature. DISC SPACES: There are mild degenerative changes. LUNG APICES: The visualized lung apices are clear. SOFT TISSUES: The visualized paraspinal soft tissues are within normal limits. CT/Spine Cervical without Contras IMPRESSION: No fracture or dislocation in the cervical spine. Straightening of the normal cervical lordosis which may be due to paraspinal muscle spasm or may be positional in nature. Mild degenerative change. Electronically Signed: Rubio Linares MD at 11:01 EDT ,
[2024-02-06] MEDS: 0.9% Normal Saline (1000mL) 1,000 ML 999 ML IV (10:08)
[2024-02-06] MEDS: DiphenhydrAMINE 50 MG/ML Syringe 25 MG IV (10:08)
[2024-02-06] MEDS: proCHLORPERazine 10 MG/2 ML Vial IV (10:08)
--- NOTE | 2024-02-06 10:22 | EDS_ITS ---
HPI History of Present Illness Chief Complaint: Eye Problem Narrative Narrative: 53-year-old male who denies significant past medical history presents with his because of worsening headache and pressure behind his eyes. He relates history that he fell off the bed of a truck on , approximately 3 days ago. He thinks he may have briefly lost consciousness. He sustained an abrasion to the back of the head/occiput. He was seen in the emergency department where head CT had been performed. He was diagnosed with concussion and abrasion of scalp. He presents today because of worsening pressure behind his eyes. He states he feels like there bulging, and he has a lot of pressure in that area. He may have mild photophobia as well. No paresthesias of arms or legs. He does not take blood thinners. He denies any exacerbating or alleviating factors. He was given a prescription for ondansetron, but has not really taken it. [facility] Medical History Indigestion Back pain Home Medications ?Medication ?Instructions ?Recorded ?Last Taken ?Type omeprazole 40 mg capsule,delayed 40 mg PO DAILY PRN Heartburn 03/04/22 Unknown History release benzonatate 200 mg capsule 200 mg PO TID PRN cough #14 caps 06/29/23 Unknown Rx dexamethasone 6 mg tablet 6 mg PO DAILY #5 tabs 06/29/23 Unknown Rx ondansetron 4 mg disintegrating 4 mg PO Q6H PRN PRN Nausea #15 tabs 02/04/24 Unknown Rx tablet Allergy/AdvReac Type Severity Reaction Status Date / Time No Known Allergies Allergy Verified 02/06/24 09:01 Social History Smoking Status: Never smoker substance use type: does not use ROS ROS ED ROS Narrative Constitutional: No fever, no chills. HEENT: No sore throat. No neck pain. No loss of vision. No rhinorrhea. Cardiovascular: No chest pain. No palpitations. No pedal edema. Respiratory: No cough, no shortness of breath. Abdominal: No abdominal pain. Mild nausea. No vomiting. Genitourinary: No dysuria. No hematuria. Musculoskeletal: No myalgias. No arthralgias. Neurologic: Positive headaches described as pressure behind eyes bilaterally. No dizziness. No lightheadedness. Skin: No rash. No change in color. Psychiatric: No depression. No anxiety. EXAM Physical Exam Narrative Exam Narrative: Afebrile. Vital signs noted. GCS 15. ABCs intact. HEENT: Normocephalic. Atraumatic. PERRL, EOMI. Neck soft and supple. No point tenderness or step off. Cardiovascular: Regular rate and rhythm. No murmurs, rubs, or gallops appreciated. Respiratory: No tachypnea. Lungs clear to auscultation bilaterally. Gastrointestinal: Abdomen soft, nontender, with normoactive bowel sounds. No rebound or guarding. Neurological: Awake. Alert. Oriented x 3. Nonfocal, nonlateralizing. Skin: No rash. Normal color. No pallor. Musculoskeletal: No pedal edema. Full range of motion extremities. Const Vital Signs: 02/06/24 09:00 02/06/24 11:00 02/06/24 14:00 Temperature 98 F Temperature Source Temporal Pulse Rate 71 74 56 L Respiratory Rate 14 16 16 Blood Pressure 129/88 H 122/76 H 128/81 H Blood Pressure Mean 101 91 96 Pulse Ox 98 98 94 Oxygen Delivery Method Room Air Room Air Room Air MDM MDM MDM Narrative Medical decision making narrative: In the differential diagnosis postconcussive syndrome versus delayed intracranial hemorrhage. I had lengthy discussion with the patient and his . I reviewed his radiology report from the CT of the brain on and there is no evidence of intracranial hemorrhage or fracture. I had initially discussed with repeat CT imaging and that there is low suspicion for any bleed. Through shared decision-making, CT of the brain and CT of the cervical spine were obtained. Additionally, he was given migraine medications in the form of Compazine and Benadryl and was bolused normal saline 1 L intravenously. I reviewed the radiology reports of the CT of the brain, and the CT of the cervical spine. There is no acute intracranial abnormality. He does have mild scalp soft tissue swelling in the parieto-occipital region. I do feel this is secondary to his scalp contusion from 2 days ago. Additionally, CT of the cervical spine shows no fracture or dislocation. He does have degenerative changes and loss of lordosis which may be secondary to muscle spasms. Upon repeat examination, after Compazine and Benadryl, patient states there has been no change in he still feels a lot of pressure behind his eyes. I discussed with the patient and his teleneurology consultation. As it is the weekend, MRI is unavailable, and I do not feel that he requires emergent MRI. The request for teleneurology consult been made. It still has not been performed. At this point in time, patient will be signed out to the oncoming physician, Dr. Randall Pimentel, who will check consultation and recommendations, but I do feel that it would most likely be discharged. Currently, patient is in stable condition. Radiography Diagnostic Testing: Clinical Impression(s) from Imaging Studies Brain CT 02/06/24 09:53 IMPRESSION: No acute intracranial abnormality. Mild scalp soft tissue swelling in the parieto-occipital region. Electronically Signed: Rubio Linares MD at 10:56 EDT , Cervical Spine CT 02/06/24 09:53 IMPRESSION: No fracture or dislocation in the cervical spine. Straightening of the normal cervical lordosis which may be due to paraspinal muscle spasm or may be positional in nature. Mild degenerative change. Electronically Signed: Rubio Linares MD at 11:01 EDT , Discharge Plan Triage Chief Complaint: Eye Problem ED Provider: Raul Lopez Dx/Rx/DC Orders Clinical Impression: Post concussive syndrome, Headache around the eyes Prescriptions: No Action dexamethasone 6 mg tablet 6 mg PO DAILY Qty: 5 0RF benzonatate 200 mg capsule 200 mg PO TID PRN (Reason: cough) Qty: 14 0RF omeprazole 40 mg Capsule,Delayed Release(Dr/Ec) 40 mg PO DAILY PRN (Reason: Heartburn) ondansetron 4 mg tablet,disintegrating 4 mg PO Q6H PRN PRN (Reason: Nausea) Qty: 15 0RF Primary Care Provider: Arely Villalobos Referrals: Arely Villalobos MD [Primary Care Provider] - Print Language: Australian
[2024-02-06 11:00] VITALS: BP 122/76; PULSE 74; RESP 16; O2SAT 98
[2024-02-06 14:00] VITALS: BP 128/81; PULSE 56; RESP 16; O2SAT 94
--- NOTE | 2024-02-06 15:02 | CT_ITS ---
EXAM: CT ANGIOGRAPHY HEAD AND NECK WITH INTRAVENOUS CONTRAST CLINICAL INDICATION: HEADACHE, CONCUSSION TECHNIQUE: [place] [facility]/head and neck CT angiography protocol performed with intravenous contrast. This CT exam was performed using one or more of the following dose reduction techniques: automated exposure control, adjustment of the mA and/or kV according to patient size, and/or use of iterative reconstruction technique. 3D and MIP reconstructed images were created and reviewed. Coronal and sagittal reformatted images were created and reviewed. CONTRAST: IV 100mL Isovue-370 RADIATION DOSE: CTDIvol = 19.68 mGy, DLP = 723.29 mGy-cm COMPARISON: Head CT earlier today. FINDINGS: HEAD: RIGHT ANTERIOR CEREBRAL ARTERY: Unremarkable. No occlusion or significant stenosis. Anterior communicating artery is present. No aneurysm. RIGHT MIDDLE CEREBRAL ARTERY: Unremarkable. No occlusion or significant stenosis. No aneurysm. RIGHT POSTERIOR CEREBRAL ARTERY: Unremarkable. No occlusion or significant stenosis. No aneurysm. RIGHT INTRACRANIAL INTERNAL CAROTID ARTERY: Unremarkable. No significant stenosis. No dissection or occlusion. RIGHT INTRACRANIAL VERTEBRAL ARTERY: Unremarkable. No significant stenosis. No dissection or occlusion. LEFT ANTERIOR CEREBRAL ARTERY: Unremarkable. No occlusion or significant stenosis. No aneurysm. LEFT MIDDLE CEREBRAL ARTERY: Unremarkable. No occlusion or significant stenosis. No aneurysm. LEFT POSTERIOR CEREBRAL ARTERY: Unremarkable. No occlusion or significant stenosis. No aneurysm. LEFT INTRACRANIAL INTERNAL CAROTID ARTERY: Unremarkable. No significant stenosis. No dissection or occlusion. LEFT INTRACRANIAL VERTEBRAL ARTERY: Unremarkable. No significant stenosis. No dissection or occlusion. BASILAR ARTERY: Unremarkable. No occlusion or significant stenosis. No aneurysm. OTHER VASCULATURE: No vascular malformation. NECK: RIGHT COMMON CAROTID ARTERY: Unremarkable. No significant stenosis. No dissection or occlusion. RIGHT EXTRACRANIAL INTERNAL CAROTID ARTERY: Unremarkable. No significant stenosis. No dissection or occlusion. RIGHT EXTERNAL CAROTID ARTERY: Unremarkable. No occlusion. RIGHT EXTRACRANIAL VERTEBRAL ARTERY: Unremarkable. No significant stenosis. No dissection or occlusion. LEFT COMMON CAROTID ARTERY: Unremarkable. No significant stenosis. No dissection or occlusion. LEFT EXTRACRANIAL INTERNAL CAROTID ARTERY: Unremarkable. No significant stenosis. No dissection or occlusion. LEFT EXTERNAL CAROTID ARTERY: Unremarkable. No occlusion. LEFT EXTRACRANIAL VERTEBRAL ARTERY: Unremarkable. No significant stenosis. No dissection or occlusion. BRACHIOCEPHALIC AND SUBCLAVIAN ARTERIES: Unremarkable as visualized. No occlusion or significant stenosis. LUNG APICES: Unremarkable as visualized. HEAD and NECK: BONES/JOINTS: Unremarkable. No discrete lytic or blastic abnormalities. SOFT TISSUES: Unremarkable. CAROTID STENOSIS REFERENCE USING NASCET CRITERIA: % ICA stenosis = (1 - narrowest ICA diameter/diameter of distal cervical ICA) x 100. Mild - <50% stenosis. Moderate - 50-69% stenosis. Severe - 70-94% stenosis. Near occlusion - 95-99% stenosis. Occluded - 100% stenosis. CT/CTA Head AND Neck W/ Contrast IMPRESSION: Negative CTA carotid and CTA brain. Electronically Signed: Juan Gonzales MD ([place]) at 15:51 EDT ,
[2024-02-06 15:22] LABS: Absolute Lymphocyte Count 2.54 X10^3/uL (0.83-4.51); Absolute Neutrophil Count 3.9 X10^3/uL (2.0-7.7); Basophil# 0.03 X10^3/uL; Basophil% 0.4 % (0-1); Eosinophil# 0.07 X10^3/uL; Hematocrit 45.2 % (40-54); Hemoglobin 15.6 g/dL (13.0-16.5); Lymphocyte # 2.54 X10^3/ul (0.83-4.51); Lymphocyte % 36.3 % (19-41); Mean Corp Hgb Conc 34.5 g/dL (32-36); Mean Corpuscular Volume 86.9 fL (80-94); Monocyte# 0.48 X10^3/uL; Monocyte% 6.9 % (0-10); NRBC Flagged by Analyzer 0 % (0-5); Neutrophil # 3.85 X10^3/uL (2.7-7.7); Neutrophil % 55.1 % (47-70); Platelet Count 218 K/mm3 (150-450); RBC Distribution Width SD 38.4 fl (35.1-43.9)
[2024-02-06 15:34] LABS: Anion Gap 2 (5-15); BUN 13 mg/dL (7-18); Calcium,Total 9.3 mg/dL (8.5-10.1); Chloride 108 mmol/L (98-107); Creatinine, Serum 0.81 mg/dL (0.70-1.30); EST Glomerular Filtration Rate 105 mL/min (>60); Est Glom Filt Rate - Afr Amer 127 mL/min (>60); Estimated Creatinine Clearance 118.63 ml/min; Glucose 113 mg/dL (74-106); Potassium 3.4 mmol/L (3.5-5.1); Sodium Level 140 mmol/L (136-145)
[2024-02-06 16:00] VITALS: BP 126/84; PULSE 82; RESP 18; O2SAT 98
--- NOTE | 2024-02-06 16:09 | ED.RN ---
report called to Eric, charge nurse at [facility] ED.
[2024-02-06 16:11] VITALS: BP 126/84; PULSE 82; RESP 18; TEMP 36.7; O2SAT 98
== END 2024-02-06 16:13 | disposition short-term general hospital (02) ==
PROVIDERS: Emergency Provider Emergency Medicine; PCP Family Medicine; Visit Provider Emergency Medicine
DX: F07.81 Postconcussional syndrome (principal); H53.143 Visual discomfort, bilateral; W17.89XS Other fall from one level to another, sequela; Y92.812 Truck as the place of occurrence of the external cause; Z79.899 Other long term (current) drug therapy
CPT/HCPCS: 70450; 70496; 70498; 72125; 80048; 85025; 96361; 96374; 96375; 99285; J7030; Q9967; A4216

== ENCOUNTER → 2024-02-29 | Outpatient (CLI) | payer OTHER, SELFPAY ==
--- NOTE | 2024-02-29 07:44 | CT_ITS ---
STUDY: CT CHEST WITH CONTRAST REASON FOR EXAM: Male, 53 years old. MASS OF RIGHT LUNG RADIATION DOSAGE (If Supplied By Facility): CTDIvol = ( 15.80 ) mGy, DLP = ( 638.07 ) mGycm TECHNIQUE: Transaxial imaging was performed following intravenous administration of IV 100mL Isovue-370. Multiplanar coronal and sagittal images were reformatted. Individualized dose optimization techniques were used for this CT. COMPARISON: No relevant priors. FINDINGS: CHEST Small benign appearing bilateral axillary lymph nodes. There is a 7.5 mm noncalcified slightly irregular nodule in the posterior superior aspect of the right upper lobe. Correlation with a PET scan is recommended. There is no demonstrated pleural abnormality. Normal heart and pericardium. Normal mediastinum. Normal hilar regions. Normal unenhanced pulmonary arteries. Normal aorta arch and descending thoracic aorta. Normal osseous structures. There is no demonstrated abnormality of the visualized upper abdomen. CT/Chest WITH Contrast IMPRESSION: Noncalcified 7.5 mm slightly irregular nodule in the posterior superior aspect of the right upper lobe. Correlation with a PET scan is recommended. Electronically Signed: Abhi Vásquez MD at 15:23 EDT ,
== END | disposition home or self-care (01) ==
PROVIDERS: PCP Family Medicine; Referring Provider Family Medicine; Visit Provider Family Medicine
DX: R91.8 Other nonspecific abnormal finding of lung field (principal)
CPT/HCPCS: 71260; Q9967

== ENCOUNTER → 2024-03-22 | Outpatient (CLI) | payer OTHER, SELFPAY ==
--- NOTE | 2024-03-22 09:30 | PET_ITS ---
EXAMINATION: FDG-PET/CT ? INDICATIONS: A 53-year-old male with a history of abnormal findings in lung field, pulmonary nodularity. ? COMPARISON EXAMINATION: CT of the chest report dated 02/29/2024. ? NON-INDEX LESION SIZE SUV INTERPRETATION Right axilla ? 2.3 max Quantitative criteria for viable neoplasm are not fulfilled ? TECHNIQUE: Following the intravenous administration of 12.9 mCi of F-18 deoxyglucose via the right antecubital fossa, multiplanar image acquisitions of the head, neck, chest, abdomen and pelvis to the level of the midthigh, obtained at one-hour post radiopharmaceutical administration contemporaneously interpreted with the current CT of the chest, abdomen and pelvis dated 03/22/[address] of the chest report dated 02/29/2024 via coregistration reveal: ? SERUM GLUCOSE LEVEL:? 77 mg/dL? HEIGHT:?? 70 inches WEIGHT:?? 196 pounds ? FINDINGS: ? HEAD/NECK:? There is no evidence of abnormal increased glucose metabolism in the pharyngeal mucosal space, parapharyngeal space, oropharynx, bilateral-lateral and anterior neck, hypopharynx and distribution of the larynx. ? The visualized portion of the cerebral cortical-subcortical structures demonstrate symmetric and preserved glucose metabolism. ? CHEST:? There is no quantitative scintigraphic evidence of abnormal increased glucose metabolism within the context of the bilateral hemithorax pulmonary parenchyma, right and left hemithorax at the pleural interface, mediastinal structures, and left-right thoracic perihilum. ? CT of the chest demonstrates the following anatomic characteristics: A noncalcified parenchymal density defined in the right upper posterior lung field, just posterior to the major fissure, demonstrates no evidence of quantitatively significant increased FDG uptake.? Mediastinal soft tissue densities are ametabolic.? A subtle focus of enhanced tracer uptake is noted in the right axilla, generating a calculated standard uptake value of 2.3.? Quantitative criteria for viable neoplasm are not fulfilled. Additional bilateral axillary soft tissue densities with expressed fatty-hilus formation are ametabolic.? There are no additional parenchymal densities-nodules defined in the right and left hemithorax.? Minimal coronary arterial calcification is observed. Mild atherosclerotic calcification is noted in the ascending thoracic aorta. ? ABDOMEN/PELVIS:? Normal physiologic distribution of the radiopharmaceutical is identified in the hepatic (3.8) and splenic parenchyma, both renal units, urinary bladder, and visualized intestinal tract.? Diffuse intestinal tract is identified in all four quadrants of the abdominal-pelvic mesentery. ? CT of the abdomen and pelvis is remarkable for the following: Right and left inguinal soft tissue densities are ametabolic. ? SKELETAL:? There is no evidence of quantitatively significant enhanced glucose metabolism on meticulous inspection of the appendicular and axial skeletal structures. ? Degenerative changes defined in the thoracic and lumbar spine demonstrate no evidence of increased glucose metabolism. There are no sclerotic, mixed sclerotic-lytic, or primarily lytic changes defined in the axial skeletal structures with evidence of increased FDG uptake. ? PET/PET/CT Tumor Base -Thigh Init IMPRESSION: 1. NEGATIVE EXAMINATION.? There is no definitive quantitative scintigraphic evidence of viable neoplasm. 2.? Meticulous attention paid to the right upper posterior lung field demonstrates no evidence of increased tracer uptake within the context of the visualized pulmonary nodule, as defined above. 3.? Anatomic stability may be ensured with repeat FDG-PET CT of the right upper lung in 3-6 months if clinically indicated. (Jaswant, Seminars in Thoracic and Cardiovascular surgery, 14:292, 2002). 4.? The enhanced tracer concentration defined in the right axilla does not fulfill quantitative criteria for neoplasm. ? Electronic Signature Sina Kincaid D.O. Accurate Quantification of SUVs for this report are calculated using the exclusive [employer]. (U.S. Patent No. [phone] [phone] [id number] [phone] [place] patent [phone]). Standardization and correction of the FDG SUV metric via [employer] technology allow for vendor non-specific objective quantitative examination comparison and optimization of the sensitivity and specificity of the FDG PET-CT examination. [email or web address] Electronically Signed: Sina Kincaid DO at 8:28 EDT ,
== END | disposition home or self-care (01) ==
PROVIDERS: PCP Family Medicine; Referring Provider Family Medicine; Visit Provider Family Medicine
DX: R91.8 Other nonspecific abnormal finding of lung field (principal)
CPT/HCPCS: 78815; A9552

== ENCOUNTER 2024-11-22 10:49 | Day surgery (SDC) | payer OTHER, SELFPAY ==
[2024-11-22] VITALS (10 sets, daily range): BP systolic 91–128; BP diastolic 55–96; PULSE 45–65; RESP 14–18; TEMP 36.1–36.4; O2SAT 94–100; BMI 28.4
[2024-11-22] MEDS: Lactated Ringers 1,000 ML 15 ML IV (11:34)
--- NOTE | 2024-11-22 11:50 | PRE.ANES_ITS ---
ASA Classification* ASA Classification ASA Classification: 2 Assessment & Plan Anesthesia* Anesthesia Assessment Anesthesia Assessment: Discussed sedation and/or anesthesia options, risks, benefits, and alternatives with patient/parents/legal guardian/POA. Questions invited. The patient/parents/legal guardian/POA seems to understand and agrees to proceed with anesthesia plan. Reviewed the physical assessment, medical history, allergy history and patient home medications list prior to surgery/procedure/anesthetic and documented any changes. Performed airway and anesthesia risk assessments. Anesthesia Type Anesthesia Type: MAC History Source History Obtained from:: Patient and Chart Anesthesia Focused Assessment* Temperature: 97.2 F Pulse Rate: 55 Blood Pressure: 123/96 Respiratory Rate: 18 Pulse Ox: 100 Oxygen Delivery Method: Room Air Airway Assessment Mouth opens: >3 cm Mallampati Score: II Focused Labs Anesthesia Preop lab: CBC WBC 7.0 K/mm3 (4.4-11.0) 02/06/24 15:08 02/06/24 RBC 5.20 M/mm3 (4.6-6.2) 02/06/24 15:08 02/06/24 Hgb 15.6 g/dL (13.0-16.5) 02/06/24 15:08 02/06/24 Hct 45.2 % (40-54) 02/06/24 15:08 02/06/24 Plt Count 218 K/mm3 (150-450) 02/06/24 15:08 02/06/24 CHEMISTRY Potassium 3.4 mmol/L (3.5-5.1) L 02/06/24 15:08 02/06/24 Sodium 140 mmol/L (136-145) 02/06/24 15:08 02/06/24 BUN 13 mg/dL (7-18) 02/06/24 15:08 02/06/24 Creatinine 0.81 mg/dL (0.70-1.30) 02/06/24 15:08 02/06/24 Glucose 113 mg/dL (74-106) H 02/06/24 15:08 02/06/24 COAG Pre-Assessment Diagnosis/Proposed Procedure Planned Operative Procedure(s): COLONOSCOPY Anesthesia History 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 When Was Last Pacemaker Check QUESTION #4 FULL TEXT: You/Your Family Experience fever (hyperthermia) with Anesthesia Last Oral Intake Last Oral intake: Last Oral Intake NPO since 22:00 11/22/24 11:19 Meds taken in AM with sips of No 11/22/24 11:19 water? Meds patient instructed to take am of surgery PONV PONV - molasses feed mixer: PONV - molasses feed mixer Female No 11/18/24 14:54 HX of Motion Sickness No 11/18/24 14:54 HX of N/V After Surgery No 11/18/24 14:54 Non-Smoker Yes 11/18/24 14:54 Duration of Surgery greater No 11/18/24 14:54 than 60 minutes Number of Risk Factors 1 11/18/24 14:54 PONV Score Low Risk 11/18/24 14:54 Height & Weight Height & Weight: Anesthesia: Height & Weight Height 5 ft 10 in 11/22/24 11:19 Weight: 89.9 kg 11/22/24 11:19 Body Mass Index (BMI) 28.4 11/22/24 11:19 Respiratory Assessment Respiratory Assessment - molasses feed mixer: Respiratory Tract Infection Hx - molasses feed mixer Hx Respiratory Tract Infection No 11/18/24 14:54 STOP Sleep Apnea STOP Sleep Apnea - molasses feed mixer: STOP Sleep Apnea - molasses feed mixer Hx Hypertension No 11/18/24 14:54 Hx Sleep Apnea No 11/18/24 14:54 CPAP BIPAP Do you snore loudly (louder Yes 11/18/24 14:54 than talking or can be heard Do you often feel tired/ No 11/18/24 14:54 fatigued/ sleepy during daytime? Has anyone observed you stop Yes 11/18/24 14:54 breathing during sleep? STOP Results Positive 11/18/24 14:54 QUESTION #5 FULL TEXT : Do you snore loudly (louder than talking or can be heard through closed doors)? 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 Specify any problems Hx of Preganancy in last 3 N/A 11/18/24 14:54 Months Nurse Filling Out Transfusion MGRIJONATHANITH 11/18/24 14:54 & Questions: Date: 11/18/24 11/18/24 14:54 Time: 14:56 11/18/24 14:54 Patient unable to answer at this time (ie. confused, unrespo /Reproduction History /Reproductive History - molasses feed mixer: /Reproductive Hx- molasses feed mixer Hx Now Gestational Age (in weeks): EDC: Hx Hx Para Hx Section SAB Active Medications Active Medications: Current Medications Generic Name Dose Route Start Last Admin Trade Name Freq PRN Reason Stop Dose Admin Lactated Ringer's 1,000 mls @ 15 mls/hr 11/22/24 11:15 11/22/24 11:34 IV 15 mls/hr .Q48H AMAN Administration PFSH Medical History (Updated 11/18/24 @ 15:01 by Tiffany Jurado) Alcohol use Injury of head and neck Gastric reflux Non-smoker Leg cramps Indigestion Back pain Home Medications ?Medication ?Instructions ?Recorded ?Last Taken ?Type omeprazole magnesium 20 mg 20 mg PO DAILY PRN dyspepsi a 11/18/24 Unknown History tablet,delayed release (Prilosec OTC) Allergy/AdvReac Type Severity Reaction Status Date / Time No Known Allergies Allergy Verified 11/22/24 11:18 Surgical History (Updated 11/18/24 @ 14:54 by Tiffany Jurado) History of nasal surgery Social History Smoking Status: Never smoker substance use type: does not use Review of Systems (Anesthesia) ROS Narrative System reviewed and no additional complaints, except as documented. Physical Exam Const alert and oriented x3 Resp normal respiratory effort and normal air movement Cardio regular rate and regular rhythm Neuro oriented x3 and moves all extremities
--- NOTE | 2024-11-22 12:28 | HP.PCM_ITS ---
HPI - General General Date of Admission: 11/22/24 Date of Service: 11/22/24 Chief Complaint: Screening colonoscopy HPI Narrative DHEERAJ SENIOR, is a 54 M who presents today for screening colonoscopy. He has had no previous colonoscopy. No family history of any GI issues or colon polyps/cancers. He denies any GI symptoms [facility] Medical History (Updated 11/22/24 @ 12:[address] Rubio Márquez MD) Screening for colon cancer Alcohol use Injury of head and neck Gastric reflux Non-smoker Leg cramps Indigestion Back pain Home Medications ?Medication ?Instructions ?Recorded ?Last Taken ?Type omeprazole magnesium 20 mg 20 mg PO DAILY PRN dyspepsi a 11/18/24 Unknown History tablet,delayed release (Prilosec OTC) Allergy/AdvReac Type Severity Reaction Status Date / Time No Known Allergies Allergy Verified 11/22/24 11:18 Surgical History (Updated 11/18/24 @ 14:54 by Tiffany Jurado) History of nasal surgery Social History Smoking Status: Never smoker substance use type: does not use Vital Signs Vital Signs Vital Signs: 11/22/24 11:19 11/22/24 11:19 11/22/24 11:52 Temperature 97.2 F L 97.2 F L Temperature Source Temporal Pulse Rate 55 L 55 L Respiratory Rate 18 18 Respiratory Pattern Normal Blood Pressure 123/96 H 123/96 H Blood Pressure Mean 105 Blood Pressure Source Monitor Blood Pressure Position Semi-Fowlers Blood Pressure Location Left Arm Pulse Ox 100 100 Oxygen Delivery Method Room Air Weight Weight: 198 lb 3.129 oz Body Mass Index (BMI) 28.4 Assessment & Plan Assessment/Plan (1) Screening for colon cancer: PLAN: Plan The patient is a 54-year-old male in need of a screening colonoscopy. We discussed the details of the planned procedure as well as risk benefits alternatives. He wishes to proceed. This will begin momentarily.
--- NOTE | 2024-11-22 12:30 | COLBX_PTH ---
PATIENT: DHEERAJ SENIOR LOC: EN U#:[id number] AGE/SX: 54/M ROOM: RE11/22/[address]: Dr. Rubio Márquez MD : 1970 BED: DIS: 11/22/2024 SPEC #: [id number] RECD: 11/22/24 14:55 STATUS: BRIANNA REQ #: [id number] YULIA: 11/22/24 12:[address]: Rubio Márquez DEPT: SURGICAL PATHOLOGY RECD BY: Musa Ramos ENTERED: 11/22/24 15:18 SP TYPE: COLON BX OTHR DR: Dr. Colt Leo MD Tissues: A - Ascending colon Procedures: Surgery Specimen Level IV HEADER OPERATION: Colonoscopy, biopsy PRE-OP DIAGNOSIS: Screening colonoscopy TISSUE SUBMITTED: A- Ascending colon biopsy MICROSCOPIC DIAGNOSIS A. Ascending colon, biopsy: * Colonic mucosa with no pathologic change MICROSCOPIC DESCRIPTION Slides are reviewed. GROSS DESCRIPTION A. Received in formalin in a container labeled with the patient's name, date of , and ascending colon biopsy is a 0.6 x 0.2 x 0.2 cm strip of cardona-pink mucosal tissue. Submitted in toto in A1. [facility] 11-22-2024 CPT:89706
--- NOTE | 2024-11-22 13:08 | PCM.POST.ANE ---
Anesthesia: Postop Eval I Current Vital Signs Temperature: 97 F Pulse Rate: 65 Blood Pressure: 99/62 Respiratory Rate: 16 Pulse Ox: 94 Oxygen Delivery Method: Room Air Assessment Airway patent: Yes Spontaneous unlabored respirations: Yes Mental status: Awake nausea: No Vomiting: No Anesthesia Complication: No Fluid Hydration Crystalloid volume administer (ml): 500 Total IV fluid infused: 500 Progress Note Anesthesia document: Postop Eval 1 completed: Yes
--- NOTE | 2024-11-22 13:36 | OP.CCLET_ITS ---
11/22/2024 Colt Leo MD [address] [id number] Re : Colonoscopy procedure for Ana Godfrey Dear Dr. Leo This procedure was performed on Friday, November 22, 2024. My impressions and recommendations are as follows: Impressions : - Diverticulosis in the sigmoid colon. - One 5 mm polyp in the ascending colon, removed with a cold biopsy forceps. Resected and retrieved. - Hemorrhoids. - The examination was otherwise normal on direct and retroflexion views. Recommendations : - Discharge patient to home (ambulatory). - High fiber diet. - Await pathology results. - Repeat colonoscopy in 5 years for surveillance. - Return to my office PRN. - Continue present medications. My findings are described in the full procedure note, which is enclosed. If I can be of further assistance, please feel free to contact me at . Sincerely, Rubio Márquez MD 11/22/2024 1:36:06 PM This report has been signed electronically.
--- NOTE | 2024-11-22 13:36 | OP.COLON_ITS ---
Patient Name: Ana Godfrey Procedure Date: 11/22/2024 12:21 PM Date of : 1970 Age: 54 Procedure: Colonoscopy Indications: Screening for colorectal malignant neoplasm Providers: Rubio Márquez MD Referring MD: Colt Leo MD Medicines: Propofol per Anesthesia Patient Profile: Refer to note in patient chart for documentation of history and physical. Last Colonoscopy: none. The patient's first colonoscopy is today. Refer to note in patient chart for documentation of history and physical. Complications: No immediate complications. Estimated blood loss: Minimal. Procedure: Pre-Anesthesia Assessment: - Prior to the procedure, a History and Physical was performed, and patient medications and allergies were reviewed. The patient's tolerance of previous anesthesia was also reviewed. The risks and benefits of the procedure and the sedation options and risks were discussed with the patient. All questions were answered, and informed consent was obtained. Prior Anticoagulants: The patient has taken no anticoagulant or antiplatelet agents. ASA Grade Assessment: II - A patient with mild systemic disease. After reviewing the risks and benefits, the patient was deemed in satisfactory condition to undergo the procedure. After I obtained informed consent, the scope was passed under direct vision. Throughout the procedure, the patient's blood pressure, pulse, and oxygen saturations were monitored continuously. The adult colonoscope was introduced through the anus and advanced to the cecum, identified by appendiceal orifice and ileocecal valve. The ileocecal valve, appendiceal orifice, and rectum were photographed. The entire colon was well visualized. The colonoscopy was performed without difficulty. The patient tolerated the procedure well. The quality of the bowel preparation was adequate. Moderate Sedation: See the other procedure note for documentation of moderate sedation with intraservice time. Scope In: 12:41:44 PM Scope Withdrawal Time 0 hours 15 minutes 10 seconds Scope Out: 1:00:14 PM Total Procedure Duration Time 0 hours 18 minutes 30 seconds Findings: The perianal and digital rectal examinations were normal. A few small-mouthed diverticula were found in the sigmoid colon. A 5 mm polyp was found in the ascending colon. The polyp was semi-sessile. The polyp was removed with a cold biopsy forceps. Resection and retrieval were complete. Verification of patient identification for the specimen was done by the nurse using the patient's name, date and medical record number. Estimated blood loss was minimal. Hemorrhoids were found during retroflexion. The hemorrhoids were mild. The exam was otherwise without abnormality on direct and retroflexion views. Impression: - Diverticulosis in the sigmoid colon. - One 5 mm polyp in the ascending colon, removed with a cold biopsy forceps. Resected and retrieved. - Hemorrhoids. - The examination was otherwise normal on direct and retroflexion views. Recommendation: - Discharge patient to home (ambulatory). - High fiber diet. - Await pathology results. - Repeat colonoscopy in 5 years for surveillance. - Return to my office PRN. - Continue present medications. Procedure Code(s): --- Professional --- 30640, Colonoscopy, flexible; with biopsy, single or multiple Diagnosis Code(s): --- Professional --- Z12.11, Encounter for screening for malignant neoplasm of colon K64.9, Unspecified hemorrhoids K57.30, Diverticulosis of large intestine without perforation or abscess without bleeding D12.2, Benign neoplasm of ascending colon CPT copyright 2021 [employer] [place] [employer]. All rights reserved. The codes documented in this report are preliminary and upon system safety engineer review may be revised to meet current compliance requirements. Rubio Márquez MD 11/22/2024 1:36:06 PM This report has been signed electronically. Number of Addenda: 0 Note Initiated On: 11/22/2024 12:21 PM
--- NOTE | 2024-11-22 14:11 | POSTOPAN2_ITS ---
Anesthesia Postop Eval I Sum Postop Eval Completion status Anesthesia document: Postop Eval 1 completed: Yes Anesthesia Postop Eval I Summary Anesthesia Postop Eval I Summary: Anesthesia Postop Eval I: Assessment Summary Airway patent Yes 11/22/24 13:08 HISTORICAL INTERPRETER.[email or web address] Spontaneous unlabored Yes 11/22/24 13:08 HISTORICAL INTERPRETER.APAT respirations Mental status Awake 11/22/24 13:08 HISTORICAL INTERPRETER.APAT nausea No 11/22/24 13:08 HISTORICAL INTERPRETER.APAT Vomiting No 11/22/24 13:08 HISTORICAL INTERPRETER.APAT Anesthesia Postop Eval I: Fluid Summary Crystalloid volume administer 500 11/22/24 13:08 HISTORICAL INTERPRETER.APAT (ml) Colloids volume administered ( ml) Blood Product volume administered (ml) Total IV fluid infused 500 11/22/24 13:08 HISTORICAL INTERPRETER.APAT Anesthesia Postop Eval I: Summary Notes Anesthesia Complication No 11/22/24 13:08 HISTORICAL INTERPRETER.APAT Anesthesia Complication Comment: Post-operative progress note Anesthesia: Postop Eval II Evaluation Mental status: Awake and Calm Pain Level: 0 nausea: No Vomiting: No Complications Anesthesia Complication: No
--- NOTE | 2024-11-22 14:11 | PCM.POSTANE2 ---
Anesthesia Postop Eval I Sum Postop Eval Completion status Anesthesia document: Postop Eval 1 completed: Yes Anesthesia Postop Eval I Summary Anesthesia Postop Eval I Summary: Anesthesia Postop Eval I: Assessment Summary Airway patent Yes 11/22/24 13:08 FLANGE TURNER.APAT Spontaneous unlabored Yes 11/22/24 13:08 FLANGE TURNER.APAT respirations Mental status Awake 11/22/24 13:08 FLANGE TURNER.APAT nausea No 11/22/24 13:08 FLANGE TURNER.APAT Vomiting No 11/22/24 13:08 FLANGE TURNER.APAT Anesthesia Postop Eval I: Fluid Summary Crystalloid volume administer 500 11/22/24 13:08 FLANGE TURNER.APAT (ml) Colloids volume administered ( ml) Blood Product volume administered (ml) Total IV fluid infused 500 11/22/24 13:08 FLANGE TURNER.APAT Anesthesia Postop Eval I: Summary Notes Anesthesia Complication No 11/22/24 13:08 FLANGE [email or web address].APAT Anesthesia Complication Comment: Post-operative progress note Anesthesia: Postop Eval II Evaluation Mental status: Awake and Calm Pain Level: 0 nausea: No Vomiting: No Complications Anesthesia Complication: No
== END 2024-11-22 13:56 | disposition home or self-care (01) ==
LOC: EN 10:49 → AC 10:51
PROVIDERS: PCP Family Medicine; Referring Provider Family Medicine; Visit Provider Surgery
PROC: 0DJD8ZZ Inspection of Lower Intestinal Tract, Via Natural or Artificial Opening Endoscopic (ICD-10-PCS; CPT 45378; principal; 2024-11-22 12:25)
DX: Z12.11 Encounter for screening for malignant neoplasm of colon (principal); D12.2 Benign neoplasm of ascending colon; K57.30 Diverticulosis of large intestine without perforation or abscess without bleeding; K64.9 Unspecified hemorrhoids; K21.9 Gastro-esophageal reflux disease without esophagitis
CPT/HCPCS: 45380; 88305